=== PATIENT | female | born 1990 | race Two or more races ===

== ENCOUNTER 2023-11-11 04:34 | Emergency (ER) | payer MEDICAID ==
[~2023-11-11] VITALS: Ht 160 cm; Wt 81.0 kg
[2023-11-11 04:38] VITALS: TEMP 97.8
[2023-11-11] MEDS ORDERED: METR45CR9 TP (04:44)
[2023-11-11 04:52] VITALS: BP 141/94; PULSE 84; RESP 18
== END 2023-11-11 06:18 | disposition home or self-care (01) ==
LOC: EMS 04:34
DX: Z13.89 Encounter for screening for other disorder (principal); Z98.890 Other specified postprocedural states
CPT/HCPCS: 99281; 99284; Z7502